=== PATIENT | male | born 1950 | race Caucasian/White ===

== ENCOUNTER 2017-11-11 00:07 | Emergency (ER) | payer SELFPAY ==
[2017-11-11] MEDS: traZODone 100 MG TABLET. PO (01:09)
== END 2017-11-11 02:05 | disposition home or self-care (01) ==
LOC: ER 00:07
DX: G47.00 Insomnia, unspecified (principal); Z76.0 Encounter for issue of repeat prescription; Z88.0 Allergy status to penicillin
CPT/HCPCS: 99283